=== PATIENT | female | born 1965 | race Caucasian/White ===

== ENCOUNTER 2018-10-30 08:36 | Emergency (ER) | payer OTHER ==
[2018-10-30 08:48] VITALS: BP 196/97; TEMP 97.8; BMI 41.6
[2018-10-30] MEDS ORDERED: ACETAMINOPHEN 1000 MG/100 ML VIAL (NON FORMULARY) IVPB ONE (09:10)
[2018-10-30] MEDS ORDERED: SODIUM CHLORIDE 500 ML IV ONE (09:10)
[2018-10-30] MEDS ORDERED: ONDANSETRON 4 MG/2 ML VIAL IVPB ONE (09:10)
[2018-10-30] MEDS ORDERED: oxyCODONE HCL 5 MG TABLET PO ONE (09:21)
[2018-10-30] MEDS ORDERED: ACETAMINOPHEN INJECTION 100 ML IVPB ONE (09:29)
[2018-10-30] MEDS ORDERED: ONDANSETRON 4 MG/2 ML VIAL ONE (09:29)
[2018-10-30 09:33] LABS: BASO % 1.9 % (0-2.0); EOS % 2.6 % (0-4.5); HEMOGLOBIN 13.3 GM/dL (10.7-15.3); LYMPH % 38.8 % (8-40); MCH 24.2 pg (25.7-33.7); MCHC 33.2 g/dl (32.0-36.0); MEAN CELL VOLUME 72.8 fl (80-96); MEAN PLT VOLUME 7.5 fl (7.5-11.1); MONO % 5.4 % (3.8-10.2); NEUT % 51.3 % (42.8-82.8); PLATELET COUNT 410 K/MM3 (134-434); RDW 15.8 % (11.6-15.6); WHITE BLOOD COUNT 9.2 K/mm3 (4.0-10.0)
[2018-10-30] MEDS ORDERED: oxyCODONE HCL 5 MG TABLET ONE (09:39)
--- NOTE | 2018-10-30 09:48 | PDOC ---
History of Present Illness - General Chief Complaint: Pain Stated Complaint: ABD PAIN, BACK PAIN Time Seen by Provider: 10/30/18 09:00 History Source: Patient Exam Limitations: No Limitations - History of Present Illness Initial Comments: 10/30/18 09:42 53-year-old female with history of prediabetes, gastroparesis, distant cholecystectomy presents with progressive abdominal pain since last night. Patient reports gradual onset of periumbilical/lower abdominal pain last night, progressed since then and now radiating around to her back, associated with nausea but only dry heaving, had a normal bowel movement prior to pain onset but no rectal output since then. Denies any urinary complaints or ATOMIC WELDER complaints , in menopause. No history of similar pain syndrome, her gastroparesis typically presents with intractable vomiting which she has daily, but does not have typical pain syndrome. She has not had any colonoscopies, denies any other recurring GI issues. No recent travel or antibiotics, chills but no fever. Past History - Past Medical History Allergies/Adverse Reactions: Allergies Allergy/AdvReac Type Severity Reaction Status Date / Time azithromycin [From Zithromax] AdvReac INCREASED Verified 10/04/15 12:07 TEMP Home Medications: Ambulatory Orders Amlodipine Besylate [Norvasc -] 10 mg PO DAILY 04/03/14 Multivitamin [Multiple Vitamins Daily] 1 each PO DAILY 04/03/14 Omeprazole [Prilosec (RX)] 20 mg PO DAILY 04/03/14 Sennosides [Senna] 1 tab PO PRN PRN 04/03/14 Ibuprofen [Motrin -] 600 mg PO TID #21 tablet 01/15/15 Cephalexin Monohydrate [Keflex -] 500 mg PO Q6H #27 capsule 01/18/15 Oxycodone HCl/Acetaminophen [Percocet 5-325 mg Tablet] 1 tab PO Q6H PRN #10 tablet MDD 4 tabs 10/30/18 COPD: No GI Disorders: Yes (GASTROPARESIS) HTN: Yes - Surgical History Abdominal Surgery: Yes Cholecystectomy: Yes - Suicide/Smoking/Psychosocial Hx Smoking Status: Yes Smoking History: Never smoked Number of Cigarettes Smoked Daily: 10 Hx Alcohol Use: No Drug/Substance Use Hx: No Substance Use Type: None Review of Systems - Review of Systems Constitutional: Yes: Chills. No: Fever HEENTM: No: Recent change in vision Respiratory: No: Cough, Shortness of Breath Cardiac (ROS): No: Chest Pain, Lightheadedness ABD/GI: Yes: Nausea. No: Constipated, Diarrhea, Vomiting : No: Dysuria, Frequency, Flank Pain Neurological: No: Headache, Dizziness All Other Systems: Reviewed and Negative *Physical Exam - Vital Signs Last Vital Signs Temp Pulse Resp BP Pulse Ox 97.8 F 120 H 16 196/97 H 98 10/30/18 08:40 10/30/18 08:40 10/30/18 08:40 10/30/18 08:40 10/30/18 08:40 - Physical Exam Comments: 10/30/18 09:45 Vital signs as noted, afebrile GENERAL: Obese female in moderate distress secondary to abdominal pain, lying on her side but otherwise conversant without active vomiting HEAD: Normal with no signs of trauma. EYES: PERRL, EOMI, sclera anicteric, conjunctiva clear with no pallor. ENT: oropharynx clear without exudates. Moist mucous membranes. NECK: Normal range of motion, supple without lymphadenopathy, JVD, or masses. LUNGS: Breath sounds equal, clear to auscultation bilaterally. No wheeze/ crackles. HEART: Regular rate and rhythm, normal S1 and S2 without murmur or rub. ABDOMEN: Soft/obese but nondistended. BS normal to decreased. Tender throughout the lower abdomen with guarding, no rebound. No palpable masses or hernias. No hepatosplenomegaly. EXTREMITIES: Normal range of motion, no edema. 2+ distal pulses. No cords, erythema, or tenderness. NEUROLOGICAL: Cranial nerves II through XII grossly intact. Normal speech, normal gait. PSYCH: Normal mood, normal affect. SKIN: Warm, Dry, no rashes or lesions noted. Moderate Sedation - Procedure Monitoring Vital Signs: Procedure Monitoring Vital Signs Temperature 97.8 F 10/30/18 08:40 Pulse Rate 120 H 10/30/18 08:40 Respiratory Rate 16 10/30/18 08:40 Blood Pressure 196/97 H 10/30/18 08:40 O2 Sat by Pulse Oximetry (%) 98 10/30/18 08:40 Heart Score/ECG Review #1 ECG reviewed & interpreted by me at: 09:58 General ECG Interpretation: Sinus Rhythm, Normal Rate (91), Normal Intervals ( qtc 482), No acute ischemic changes ED Treatment Course - LABORATORY CBC & Chemistry Diagram: 10/30/18 09:16 10/30/18 10:30 - ADDITIONAL ORDERS Additional order review: 10/30/18 09:16 RBC 5.50 H MCV 72.8 L MCHC 33.2 RDW 15.8 H MPV 7.5 Neutrophils % 51.3 Lymphocytes % 38.8 D Monocytes % 5.4 Eosinophils % 2.6 Basophils % 1.9 - RADIOLOGY Radiology Studies Ordered: Category Date Time Status ABDOMEN & PELVIS CT WITH CONTR [CT] Stat CT Scan 10/30/18 09:21 Ordered - Medications Given in the ED: ED Medications Discontinued Medications Generic Name Dose Route Start Last Admin Trade Name Freq PRN Reason Stop Dose Admin Acetaminophen 1,000 mg 10/30/18 09:10 10/30/18 09:35 Ofirmev Injection - IVPB 10/30/18 09:11 1,000 mg ONCE ONE Administration Ondansetron HCl 8 mg 10/30/18 09:10 10/30/18 09:35 Zofran Injection IVPB 10/30/18 09:11 8 mg ONCE ONE Administration Medical Decision Making - Medical Decision Making 10/30/18 09:48 53-year-old female with history of diabetes and gastroparesis presents with intractable abdominal pain since last night, peritoneal findings on examination. Presentation concerning for infectious process such as appendicitis /colitis/diverticulitis, rule out obstruction/incarcerated hernia, seems less likely or ATOMIC WELDER related. Rule out vascular process. Labs, urinalysis Only wants oral pain control, will give IV nausea medicine IV fluid hydration CAT scan of the abdomen and pelvis Reassess 10/30/18 11:34 No leukocytosis, chem within normal limits including troponin and lipase, urinalysis without infection but with blood. Patient symptoms have essentially resolved after oxycodone, she is ambulating comfortably. Awaiting CT, reassess. 10/30/18 12:54 Pain resolved, abdomen benign, CAT scan shows hiatal hernia and umbilical fat- containing hernia without any other acute pathology in the abdomen including infection or obstruction. Agrees with discharge plan, has follow-up with Dr. Mosqueda, understands return criteria. Patient is having breakthrough vaginal bleeding from a hormone patch for her menopause, explaining the hematuria. *DC/Admit/Observation/Transfer Diagnosis at time of Disposition: Abdominal pain Qualifiers: Abdominal location: periumbilical Qualified Code(s): R10.33 - Periumbilical pain - Discharge Dispostion Disposition: HOME Condition at time of disposition: Improved - Prescriptions Prescriptions: Oxycodone HCl/Acetaminophen [Percocet 5-325 mg Tablet] 1 tab PO Q6H PRN #10 tablet MDD 4 tabs PRN Reason: Pain - Referrals Referrals: Radha Cho MD [Primary Care Provider] - - Patient Instructions Printed Discharge Instructions: DI for Abdominal Pain-Adult Additional Instructions: Activity as tolerated. Stay hydrated. Blood tests, a urine test, and a CAT scan of the abdomen and pelvis showed no acute abnormalities other than a hiatal hernia and an umbilical hernia, which might have been the cause of your pain. There is no other emergency with a hernia at this time, he should follow up with a general surgeon if you continue to experience intermittent mild pain. Tylenol 1000 mg every 8 hours and/or ibuprofen 600 mg every 8 hours as needed for pain. Percocet as prescribed as needed for severe pain, Percocet can make you lightheaded so take proper precautions. Continue your medications as previously prescribed by your physician. You should follow up with Dr. Mosqueda and a general surgeon as soon as possible regarding today's emergency department visit. Return to the emergency department for any new or concerning symptoms, particularly persistent or worsening pain, vomiting or fevers or chills, difficulty urinating or bloody stool. - Post Discharge Activity
[2018-10-30 10:03] LABS: URINE APPEARANCE CLEAR; URINE BILIRUBIN NEGATIVE (<2.0 mg/dL); URINE COLOR LTYELLOW; URINE GLUCOSE (UA) NEGATIVE (NEGATIVE); URINE KETONE NEGATIVE (NEGATIVE); URINE LEUK ESTERASE NEGATIVE (NEGATIVE); URINE NITRITE NEGATIVE (NEGATIVE); URINE PROTEIN NEGATIVE (NEGATIVE); URINE UROBILINOGEN NEGATIVE mg/dL (0.2-1.0)
[2018-10-30 10:37] LABS: EPI CELLS RARE /HPF (FEW); URINE BACTERIA RARE /hpf (NONE SEEN); URINE MUCUS RARE
[2018-10-30 11:20] LABS: ALBUMIN 3.6 g/dl (3.4-5.0); ALK PHOS 137 U/L (45-117); ANION GAP 10 MMOL/L (8-16); BILIRUBIN,TOTAL 0.2 mg/dL (0.2-1); BLOOD UREA NITROGEN 12 mg/dL (7-18); CALCIUM 8.9 mg/dL (8.5-10.1); CHLORIDE 104 mmol/L (98-107); CO2 24 mmol/L (21-32); CREATININE 0.7 mg/dL (0.55-1.3); GLUCOSE,RANDOM 86 mg/dL (74-106); LIPASE 165 U/L (73-393); POTASSIUM 3.6 mmol/L (3.5-5.1); SGOT/AST 35 U/L (15-37); SGPT/ALT 53 U/L (13-61); SODIUM 138 mmol/L (136-145); TOT PROT 7.1 g/dl (6.4-8.2)
--- NOTE | 2018-10-30 11:57 | EKG ---
Test Reason : Blood Pressure : / mmHG Vent. Rate : 091 BPM Atrial Rate : 091 BPM P-R Int : 146 ms QRS Dur : 084 ms QT Int : 392 ms P-R-T Axes : 060 048 051 degrees QTc Int : 482 ms NORMAL SINUS RHYTHM PROLONGED QT ABNORMAL ECG WHEN COMPARED WITH ECG OF 31-MAR-2013 12:04, NO SIGNIFICANT CHANGE WAS FOUND Confirmed by NAT GUNTER MD ([id number]) on 10/30/2018 11:57:28 AM Referred By: Confirmed By:NAT GUNTER MD
[2018-10-30 13:19] VITALS: PULSE 96
== END 2018-10-30 13:20 | disposition home or self-care (01) ==
LOC: JER 08:36
PROC: 3E0337Z Introduction of Electrolytic and Water Balance Substance into Peripheral Vein, Percutaneous Approach (ICD-10-PCS; principal; 2018-10-30)
PROC: 3E0333Z Introduction of Anti-inflammatory into Peripheral Vein, Percutaneous Approach (ICD-10-PCS; 2018-10-30)
PROC: 3E033GC Introduction of Other Therapeutic Substance into Peripheral Vein, Percutaneous Approach (ICD-10-PCS; 2018-10-30)
DX: R10.33 Periumbilical pain (principal); R73.03 Prediabetes; K31.84 Gastroparesis
CPT/HCPCS: 36415; 74177-TC; 80053; 81003; 81015; 82550; 83690; 83735; 84484; 84703; 85025; 87086; 93005; 93010; 99283-25; J0131

== ENCOUNTER 2023-11-23 09:29 | Inpatient (IN) | payer OTHER ==
[2023-11-23] MEDS: SODIUM CHLORIDE 0.9% 500 ML INFUS.BAG IV ONE ×2 (11:26→16:00)
[2023-11-23 11:37] LABS: EOS % 1.5 % (0-4.5); HEMATOCRIT 32.8 % (32.4-45.2); LYMPH % 27.6 % (8-40); MCHC 30.6 g/dl (32.0-36.0); MEAN CELL VOLUME 65.5 fl (80-96); MEAN PLT VOLUME 7.1 fl (7.5-11.1); MONO % 4.6 % (3.8-10.2); NEUT % 65.3 % (42.8-82.8); PLATELET COUNT 372 10^3/uL (134-434); RBC 5.01 M/mm3 (3.60-5.2); RDW 17.9 % (11.6-15.6); WHITE BLOOD COUNT 10.4 K/mm3 (4.0-10.0)
[2023-11-23 11:42] LABS: INR 1.12 (0.83-1.09)
[2023-11-23 11:45] LABS: ACTIVATED PTT 30.1 SECONDS (25.2-36.5)
[2023-11-23 11:58] LABS: CALCIUM 8.9 mg/dL (8.5-10.1)
[2023-11-23 11:59] LABS: ALBUMIN 3.2 g/dl (3.4-5.0); BLOOD UREA NITROGEN 11.6 mg/dL (7-18)
[2023-11-23 12:02] LABS: CREATININE 0.7 mg/dL (0.55-1.3)
[2023-11-23 12:04] LABS: BILIRUBIN,TOTAL 0.2 mg/dL (0.2-1); TOT PROT 6.6 g/dl (6.4-8.2)
[2023-11-23 12:35] LABS: ANISOCYTOSIS 1+; MACROCYTOSIS 0; OVALOCYTE 1+
[2023-11-23] MEDS ORDERED: morphine SULFATE 4 MG/ML VIAL ONE (14:08)
[2023-11-23] MEDS: morphine CARPU-JECT 4 MG/1 ML DISP.SYRIN IVPUSH ONE (14:16)
[2023-11-23] MEDS: ACETAMINOPHEN 1000 MG/100 ML BAG IVPB ONE (14:24)
[2023-11-23] MEDS ORDERED: ACETAMINOPHEN 1000 MG/100 ML BAG IVPB PRN (15:53)
[2023-11-23] MEDS ORDERED: ONDANSETRON 4 MG/2 ML VIAL IVPUSH PRN ×2 (15:54→20:13)
[2023-11-23] MEDS ORDERED: PANTOPRAZOLE SODIUM 40 MG VIAL IVPUSH SCH (16:00)
[2023-11-23] MEDS ORDERED: oxyCODONE HCL 5 MG TABLET PO PRN ×4 (17:30→20:13)
[2023-11-23] MEDS ORDERED: LACTATED RINGERS SOLUTION 1,000 ML IV SCH (17:30)
[2023-11-23] MEDS ORDERED: PROMETHAZINE HCL 25 MG/1 ML VIAL IVPB PRN ×2 (17:30→20:13)
[2023-11-23] MEDS: DEXTROSE 5%-LACTATED RINGERS 1,000 ML IV SCH (17:30)
[2023-11-23] MEDS ORDERED: PANTOPRAZOLE SODIUM 0 MG/0 ML BAG IVPB ONE (17:31)
[2023-11-23] MEDS ORDERED: SUGAMMADEX SODIUM 200 MG/2 ML VIAL ONE (17:41)
[2023-11-23] MEDS ORDERED: DEXAMETHASONE SOD PHOSPHATE 4 MG/1 ML VIAL ONE (17:42)
[2023-11-23] MEDS ORDERED: LIDOCAINE HCL/PF 2% SDV 5ML VIAL ONE (17:42)
[2023-11-23] MEDS ORDERED: ONDANSETRON 4 MG/2 ML VIAL ONE (17:42)
[2023-11-23] MEDS ORDERED: PROPOFOL 20 ML ONE (17:42)
[2023-11-23] MEDS ORDERED: HYDROmorphone HCl 2 MG/ML VIAL ONE (17:42)
[2023-11-23] MEDS ORDERED: MIDAZOLAM HCL 2 MG/2 ML SINGLE DOSE VIAL ONE ×2 (17:42→18:51)
[2023-11-23] MEDS ORDERED: ROCURONIUM BROMIDE 50 MG/5 ML SYRINGE ONE (17:42)
[2023-11-23] MEDS ORDERED: SEVOFLURANE 250 ML BTL ONE (17:44)
[2023-11-23] MEDS ORDERED: KETOROLAC TROMETHAMINE 30 MG/1 ML VIAL ONE (17:52)
[2023-11-23] MEDS ORDERED: ceFAZolin SODIUM 1 GM VIAL ONE (18:49)
[2023-11-23] MEDS: ceFAZolin SODIUM 1 GM VIAL IVPB ONE (18:50)
[2023-11-23] MEDS ORDERED: BUPIVACAINE HCL/PF 0.5% (5MG/ML) 10 ML VIAL ONE (18:51)
[2023-11-23] MEDS ORDERED: LIDOCAINE HCL 1%, 10 MG/ML (20ML VIAL) ONE (18:51)
[2023-11-23] MEDS: BUPIVACAINE HCL/PF 0.5% (5MG/ML) 10 ML VIAL IJ ONE (19:17)
[2023-11-23] MEDS: LIDOCAINE HCL 1%, 10 MG/ML (20ML VIAL) INF ONE (19:17)
[2023-11-23] MEDS ORDERED: DOCUSATE SODIUM 100 MG CAPSULE (FP) PO PRN (19:53)
[2023-11-23] MEDS ORDERED: ACETAMINOPHEN INJECTION 100 ML IVPB ONE (20:17)
[2023-11-23] MEDS: ACETAMINOPHEN 1000 MG/100 ML BAG IVPB SCH (20:20)
[2023-11-24 04:19] VITALS: BMI 40.2
[2023-11-24] MEDS: LACTATED RINGERS SOLUTION 1,000 ML IV SCH (06:54)
[2023-11-24 08:22] LABS: BASO % 0.2 % (0-2.0); HEMATOCRIT 30.1 % (32.4-45.2); HEMOGLOBIN 9.2 GM/dL (10.7-15.3); MCHC 30.5 g/dl (32.0-36.0); MEAN PLT VOLUME 7.3 fl (7.5-11.1); NEUT % 84.8 % (42.8-82.8); PLATELET COUNT 362 10^3/uL (134-434); RBC 4.63 M/mm3 (3.60-5.2); WHITE BLOOD COUNT 11.7 K/mm3 (4.0-10.0)
[2023-11-24 08:24] LABS: POTASSIUM 4.2 mmol/L (3.5-5.1)
[2023-11-24 08:29] LABS: BLOOD UREA NITROGEN 9.8 mg/dL (7-18); CALCIUM 8.8 mg/dL (8.5-10.1); MCH 19.8 pg (25.7-33.7)
[2023-11-24 08:32] LABS: CREATININE 0.5 mg/dL (0.55-1.3)
[2023-11-24] MEDS: PANTOPRAZOLE SODIUM 40 MG VIAL IVPUSH SCH (09:31)
[2023-11-24 14:16] VITALS: BP 133/76; PULSE 78; RESP 20; TEMP 98
== END 2023-11-24 15:15 | disposition home or self-care (01) | DRG 227 ==
LOC: JER 09:29 → JERBED 15:12 → J7W 18:50
PROVIDERS: ADMIT Internal Medicine
PROC: 0WQF0ZZ Repair Abdominal Wall, Open Approach (ICD-10-PCS; principal; 2023-11-23 17:33)
DX: K42.0 Umbilical hernia with obstruction, without gangrene (principal); I10 Essential (primary) hypertension; K76.0 Fatty (change of) liver, not elsewhere classified; E11.43 Type 2 diabetes mellitus with diabetic autonomic (poly)neuropathy; K31.84 Gastroparesis; K21.9 Gastro-esophageal reflux disease without esophagitis; E66.01 Morbid (severe) obesity due to excess calories; Z68.41 Body mass index [BMI] 40.0-44.9, adult
CPT/HCPCS: 36415; 74177-TC; 80048; 80053; 83605; 85025; 85610; 85730; 86850; 86900; 86901; 88302-TC; 93005; 93010; 94760; 99285-25; J0131; Q9967